=== PATIENT | male | born 1985 | race Caucasian/White ===

== ENCOUNTER 2016-09-12 11:38 | Emergency (ER) | payer OTHER ==
[~2016-09-12] VITALS: Ht 170.2 cm; Wt 71.7 kg
[2016-09-12] MEDS ORDERED: DICLOFENAC SODI75 MG PO (15:28)
[2016-09-12] MEDS ORDERED: ATARAX,VISTARIL25 MG PO (16:01)
[2016-09-12 16:07] VITALS: BP 132/69
== END 2016-09-12 16:08 | disposition home or self-care (01) ==
LOC: EME 11:38
DX: F41.9 Anxiety disorder, unspecified (principal); R45.4 Irritability and anger; F17.200 Nicotine dependence, unspecified, uncomplicated
CPT/HCPCS: 99281; 99283